=== PATIENT | female | born 1960 | race Caucasian/White ===

== ENCOUNTER 2016-05-15 23:28 | Emergency (ER) | payer OTHER ==
[2016-05-15 23:54] VITALS: BMI 29.9
[2016-05-15 23:58] VITALS: O2SAT 100
[2016-05-16 00:03] VITALS: RESP 17; TEMP 97.8
[2016-05-16] MEDS ORDERED: Sodium Chloride 0.9% 1,000 ML IV STA (00:47)
[2016-05-16] MEDS ORDERED: DiphenhydrAMINE 50 mg/ml Inj IVP STA (00:48)
--- NOTE | 2016-05-16 00:49 | ED PDOC ---
Arrival/HPI <Rashel Leslie - Last Filed: 05/16/16 01:47> - General Historian: Patient - History of Present Illness Time/Duration: Other (1 day) Quality: Aching Context: Home <Rodney Huntley - Last Filed: 05/16/16 02:00> - General Chief Complaint: Dental Pain Time Seen by Provider: 05/15/16 23:44 - History of Present Illness Narrative History of Present Illness (Text): 05/16/16 00:49 This 55 yo female with pmh Migraines, presents to this ED c/o right lower toothache since yesterday. Patient stated dental pain has caused Migraines exacerbation. Patient denies fever, facial swelling, rash, sob, cp, wheezing, abdominal pain, dizziness, n/v, or abnormal gait. (Rodney Huntley) Past Medical History - Provider Review Nursing Documentation Reviewed: Yes - Infectious Disease Hx of Infectious Diseases: None - Tetanus Immunization Tetanus Immunization: Up to Date - Reproductive Menopause: Yes - Cardiac Hx Hypertension: Yes Hx Mitral Valve Prolapse: Yes Hx Pacemaker: No - Pulmonary Hx Respiratory Disorders: No - Neurological Hx Neurological Disorder: No Hx Paralysis: No - HEENT Hx HEENT Disorder: No - Renal Hx Renal Disorder: No - Endocrine/Metabolic Hx Endocrine Disorders: No - Hematological/Oncological Hx Blood Disorders: No - Integumentary Hx Dermatological Disorder: No - Musculoskeletal/Rheumatological Hx Falls: No - Gastrointestinal Hx Gastrointestinal Disorders: Yes (colitis,irritable bowel syndrome) - Genitourinary/Gynecological Hx Genitourinary Disorders: No - Psychiatric Hx Psychophysiologic Disorder: No Hx Depression: No Hx Emotional Abuse: No Hx Physical Abuse: No Hx Substance Use: No - Surgical History Hx Hysterectomy: Yes - Anesthesia Hx Anesthesia: No Hx Anesthesia Reactions: No Hx Malignant Hyperthermia: No - Suicidal Assessment Feels Threatened In Home Enviroment: No <Rodney Huntley - Last Filed: 05/16/16 02:00> Family/Social History - Physician Review Nursing Documentation Reviewed: Yes Family/Social History: No Known Family HX Smoking Status: Never Smoked Hx Alcohol Use: No Hx Substance Use: No Hx Substance Use Treatment: No <Rodney Huntley - Last Filed: 05/16/16 02:00> Allergies/Home Meds <Rashel Leslie - Last Filed: 05/16/16 01:47> <Rodney Huntley P - Last Filed: 05/16/16 02:00> Allergies/Adverse Reactions: Allergies Iodine and Iodide Containing Produc Allergy (Verified 05/15/16 23:54) URTICARIA Home Medications: Home Meds Medication Instructions Recorded Confirmed Aspirin [Liseth Aspirin Children[facility]] 81 mg PO DAILY 01/24/12 07/31/13 Nebivolol [Bystolic] 5 mg PO DAILY 01/23/13 07/31/13 Review of Systems - Review of Systems Constitutional: Normal. absent: Fatigue, Weight Change, Fevers Eyes: Normal. absent: Vision Changes, Photophobia, Eye Pain ENT: Other (toothache, and ear pain) Respiratory: Normal Cardiovascular: Normal Gastrointestinal: Normal Genitourinary Female: Normal Musculoskeletal: Normal Skin: Normal Neurological: Headache. absent: Dizziness, Focal Weakness, Gait Changes, Speech Changes, Facial Droop, Disequilibrium, Seizure Endocrine: Normal Hemo/Lymphatic: Normal Psychiatric: Normal <Rodney Huntley P - Last Filed: 05/16/16 02:00> Physical Exam Temperature: Afebrile Blood Pressure: Normal Pulse: Regular Respiratory Rate: Normal Appearance: Positive for: Well-Appearing, Non-Toxic, Comfortable Pain Distress: None Mental Status: Positive for: Alert and Oriented X 3 - Systems Exam Head: Present: Atraumatic, Normocephalic Pupils: Present: PERRL Extroacular Muscles: Present: EOMI Conjunctiva: Present: Normal Mouth: Present: Moist Mucous Membranes, Normal Lips, Normal Tounge, Other (Mild dental gum tenderness, #28. No dental abscess.). No: Drooling Pharnyx: Present: Normal. No: ERYTHEMA, EXUDATE, TONSILS ENLARGED Nose (External): Present: Atraumatic Nose (Internal): Present: Normal Inspection Neck: Present: Normal Range of Motion. No: Meningeal Signs Respiratory/Chest: Present: Clear to Auscultation, Good Air Exchange. No: Respiratory Distress, Accessory Muscle Use Cardiovascular: Present: Regular Rate and Rhythm, Normal S1, S2. No: Murmurs Abdomen: Present: Normal Bowel Sounds. No: Tenderness, Distention, Peritoneal Signs Back: Present: Normal Inspection Upper Extremity: Present: Normal Inspection. No: Cyanosis, Edema Lower Extremity: Present: Normal Inspection. No: Edema Neurological: Present: GCS=15, CN II-XII Intact, Speech Normal Skin: Present: Warm, Dry, Normal Color. No: Rashes Psychiatric: Present: Alert, Oriented x 3, Normal Insight, Normal Concentration <Rodney Huntley - Last Filed: 05/16/16 02:00> Vital Signs Temp Pulse Resp BP Pulse Ox 05/16/16 00:02 97.8 F 86 17 152/86 H 100 05/15/16 23:54 98.1 F 89 18 154/99 H 100 Medical Decision Making <Rashel Leslie - Last Filed: 05/16/16 01:47> Re-evaluation Time: 01:56 Reassessment Condition: Re-examined, Improved <Rodney Huntley - Last Filed: 05/16/16 02:00> ED Course and Treatment: 05/16/16 01:54 Re-evaluation. Patient feels better. Discussed results and plan with patient who expresses understanding. All questions answered and there is agreement with the plan to discharge home with instructions. Patient stable for discharge. Return if symptoms persist or worsen Patient stated MCNAMARA has improved, and she wishes to be discharge home. Patient agreed to f/u neurologist on Tuesday, and she will continue with home medication for migraine. She was also recommended to f/u dentist for her dental pain. ( Rodney Huntley) - Medication Orders Current Medication Orders: Discontinued Medications Amoxicillin (Amoxil 500 Mg Cap) 500 mg PO STAT STA PRN Reason: Protocol Stop: 05/16/16 00:49 Last Admin: 05/16/16 01:26 Dose: 500 MG Diphenhydramine HCl (Benadryl) 25 mg IVP STAT STA Stop: 05/16/16 00:49 Last Admin: 05/16/16 01:26 Dose: 25 MG IVP Administration Document 05/16/16 01:26 MR (Rec: 05/16/16 01:26 MR MCKEONJAIME) Charges for Administration # of IVP Administrations 1 Sodium Chloride (Sodium Chloride 0.9%) 1,000 mls @ 999 mls/hr IV .Q1H1M STA Stop: 05/16/16 01:47 Last Admin: 05/16/16 01:26 Dose: 999 MLS/HR eMAR Start Stop Document 05/16/16 01:26 MR (Rec: 05/16/16 01:27 [facility] Intravenous Solution Start Date 05/16/16 Start Time 01: End Date 05/16/16 End time 02:26 Total Infusion Time 60 Ketorolac Tromethamine (Toradol) 15 mg IVP STAT STA Stop: 05/16/16 00:48 Last Admin: 05/16/16 01:26 Dose: 15 MG IVP Administration Document 05/16/16 01:26 MR (Rec: 05/16/16 01:26 [facility]) Charges for Administration # of IVP Administrations 1 Metoclopramide HCl (Reglan) 10 mg IVP STAT STA Stop: 05/16/16 00:49 Last Admin: 05/16/16 01:26 Dose: 10 MG IVP Administration Document 05/16/16 01:26 MR (Rec: 05/16/16 01:26 [facility] Charges for Administration # of IVP Administrations 1 - PA / TIP SCOURER / Resident Statement POPPY has reviewed & agrees with the documentation as recorded. / has examined the patient and agrees with the treatment plan. <Rashel Leslie - Last Filed: 05/16/16 01:47> Disposition/Present on Arrival <Rashel Leslie - Last Filed: 05/16/16 01:47> - Present on Arrival Any Indicators Present on Arrival: No History of DVT/PE: No History of Uncontrolled Diabetes: No Urinary Catheter: No History of Decub. Ulcer: No History Surgical Site Infection Following: None - Disposition Have Diagnosis and Disposition been Completed?: Yes Disposition Time: 01:56 Patient Plan: Discharge <Rodney Huntley - Last Filed: 05/16/16 02:00> - Disposition Diagnosis: Pain, dental, Headache Disposition: HOME/ ROUTINE Patient Problems: Current Active Problems Problem Status Diagnosed Headache Acute Pain, dental Acute Condition: GOOD Discharge Instructions (ExitCare): Toothache (ED), Migraine Headache (ED) Additional Instructions: Call private doctor for follow up visit on Tuesday. Also call private neurologist for revaluation. And call private dentist for dental pain. Return to emergency if symptoms worsen. Prescriptions: Amoxicillin [Amoxil 500 mg Cap] 500 mg PO TID #30 cap Chlorhexidine 0.12% [Peridex] 15 ml PO BID #1 bottle Referrals: Vito Grimm MD [Family Provider] - Follow up with primary Forms: WORK NOTE
[2016-05-16 02:27] VITALS: BP 134/79; PULSE 83
== END 2016-05-16 02:54 | disposition home or self-care (01) ==
LOC: ED 23:28
DX: K08.89 Other specified disorders of teeth and supporting structures (principal); R51 Headache
CPT/HCPCS: 96361; 96374; 96375; 99283; J1200; J1885; J2765; J7040